=== PATIENT | female | born 1965 | race Two or more races ===

== ENCOUNTER 2024-01-21 21:46 | Emergency (ER) | payer BC ==
[~2024-01-21] VITALS: Ht 170.2 cm; Wt 90.7 kg
[2024-01-21] MEDS ORDERED: ZETIA10 MG (21:47)
[2024-01-21] MEDS ORDERED: KETOROLAC TROMETHAMINE 60 MG VIAL IM ONE (22:00)
[2024-01-21] MEDS ORDERED: OxyCODONE HCL/APAP UD (PERCOCET) PO ONE (22:45)
[2024-01-22] MEDS ORDERED: DIPHENHYDRAMINE HCL 50 MG/ML VIAL 1ML IM ONE (00:15)
[2024-01-22] MEDS ORDERED: METHYLPREDNISOLONE SOD SUCC 125 MG VIAL IM ONE (00:15)
== END 2024-01-22 00:08 | disposition home or self-care (01) ==
LOC: ER 21:46
DX: S82.852A Displaced trimalleolar fracture of left lower leg, initial encounter for closed fracture (principal); V00.148A Other scooter (nonmotorized) accident, initial encounter; Y92.488 Other paved roadways as the place of occurrence of the external cause; Y93.K1 Activity, walking an animal; Y99.9 Unspecified external cause status